=== PATIENT | male | born 1995 | race African-American/Black ===

== ENCOUNTER 2018-02-11 11:02 | Emergency (ER) | payer OTHER ==
[~2018-02-11] VITALS: Ht 193 cm; Wt 180.0 kg
[2018-02-11] MEDS ORDERED: IBUPROFEN 800 MG TABLET PO ONE (13:00)
[2018-02-11 13:31] VITALS: BP 112/64
== END 2018-02-11 13:35 | disposition home or self-care (01) ==
LOC: EMS 11:03
DX: M76.62 Achilles tendinitis, left leg (principal); M62.562 Muscle wasting and atrophy, not elsewhere classified, left lower leg

== ENCOUNTER 2018-03-27 13:59 | Emergency (ER) | payer OTHER ==
[~2018-03-27] VITALS: Ht 185.4 cm; Wt 63.6 kg
[2018-03-27 14:48] VITALS: BP 121/67
[2018-03-27] MEDS ORDERED: IBUPROFEN 600 MG TABLET PO ONE (16:15)
== END 2018-03-27 18:36 | disposition home or self-care (01) ==
LOC: EMS 13:59
DX: G89.29 Other chronic pain (principal); M25.572 Pain in left ankle and joints of left foot; M62.562 Muscle wasting and atrophy, not elsewhere classified, left lower leg
CPT/HCPCS: 29540